=== PATIENT | female | born 1950 | race Two or more races ===

== ENCOUNTER 2017-12-09 07:47 | Day surgery (SDC) | payer MEDICARE, OTHER ==
[2017-12-09] VITALS (8 sets, daily range): BP systolic 93–124; BP diastolic 60–65
[~2017-12-09] VITALS: Ht 152.4 cm; Wt 52.6 kg
[~2017-12-09 07:47] MED LIST: LR 1000ml 1,000 ML IVLG SCH
--- NOTE | 2017-12-09 08:07 | Anethesia Preoperative Eval ---
Anesthesia Pre-op PMH/ROS General Date of Evaluation: Dec 09, 2017 Time of Evaluation: 08:55 Anesthesiologist: Jens ASA Score: ASA 1 Mallampati Score Class I : Soft palate, uvula, fauces, pillars visible Class II: Soft palate, uvula, fauces visible Class III: Soft palate, base of uvula visible Class IV: Only hard plate visible Mallampati Classification: Class I Surgeon: Wesley Diagnosis: GERD Surgical Procedure: EGD Anesthesia History: none Family History: no anesthesia problems Allergies: Coded Allergies: No Known Allergies (Unverified , 12/08/17) Medications: see eMAR Patient NPO?: Yes NPO Date: Dec 08, 2017 NPO Time: 21:00 Past Medical History Cardiovascular: Reports: other - hyperlipids Endocrine: Reports: hypothyroidism HEENT: Reports: glaucoma Musculoskeletal/Integumentary: Reports: OA - hands PSxH Narrative: bladder surgery Anesthesia Pre-op Phys. Exam Physician Exam Constitutional: NAD Neurologic: CN 2-12 intact Cardiovascular: RRR Respiratory: CTA Gastrointestinal: S/NT/ND Airway Exam Mallampati Score: Class I MO: full ROM: full Teeth: intact Dentures: no upper, no lower Anesthesia Pre-op A/P Labs chart reviewed Risk Assessment & Plan Assessment: A&Ox4 Plan: MAC Status Change Before Surgery: No Pre-Antibiotics Given Within 1 Hr of Incision: Hien Hamm CRNA Dec 09, 2017 08:07
--- NOTE | 2017-12-09 08:08 | Immediate Post-Op Evaluation ---
Immediate Post-Op Evalulation Immediate Post-Op Evalulation Procedure: EGD Date of Evaluation: Dec 09, 2017 Time of Evaluation: 09:30 IV Fluids: LR 300ml Blood Products: 0 Estimated Blood Loss: 0 Urinary Output: no remy Blood Pressure Systolic: 107 Blood Pressure Diastolic: 65 Pulse Rate: 74 Respiratory Rate: 20 O2 Sat by Pulse Oximetry: 99 Temperature (Fahrenheit): 97.3 Pain Score (1-10): 0 Nausea: No Vomiting: No Patient Status: awake, reacts, patent Hydration Status: adequate Given Within 1 Hr of Incision: No - none per surgeon Hien Colindres CRNA Dec 09, 2017 08:08
--- NOTE | 2017-12-09 08:52 | Short Stay Surgery H&P ---
History of Present Illness History of Present Illness Chief Complaint Abdominal pains/GERDs HPI Dianne Linda is a 67 year old female who was admitted on for GERD/abdominal pains Patient History Allergies: Coded Allergies: No Known Allergies (Unverified , 12/08/17) Review of Systems Cardiovascular: Reports: no symptoms Respiratory: Reports: no symptoms Skeletal: Reports: no symptoms Gastrointestinal: Reports: gastro esophageal reflux disease Genitourinary: Reports: no symptoms Neurologic: Reports: no symptoms Endocrine: Reports: other Hematologic: Reports: no symptoms Physical Exam Vital Signs Last Vital Signs Date Time Temp Pulse Resp B/P (MAP) Pulse Ox O2 Delivery O2 Flow Rate FiO2 12/09/17 08:39 Room Air 12/09/17 08:37 97.3 82 20 124/64 99 97.3 Skin: normal HENT: normal Heart: normal Lungs: normal Abdomen: normal Extremities: normal Genitourinary: normal Plan Plan of Care Upper GI endoscopy and biopsy Preop Interventions None. Summary of Findings See the reports Attestation Are the patient's medical conditions optimized for surgery? Attestation Response: yes Cheyenne Olson MD Dec 09, 2017 08:52
--- NOTE | 2017-12-09 08:53 | Pre-Procedure Note/Attestation ---
Pre-Procedure Note/Attestation Complete Prior to Procedure Planned Procedure: left Procedure Narrative: Endoscopic exam of the upper GItract and biopsy. Indications for Procedure Pre-Operative Diagnosis: R/O Gastritis/gastric ulcer./esophagitis Attestation I attest that I discussed the nature of the procedure; its benefits; risks and complications; and alternatives (and the risks and benefits of such alternatives ), prior to the procedure, with the patient (or the patient's legal sales representative cash registers). I attest that, if there was a reasonable possibility of needing a blood transfusion, the patient (or the patient's legal sales representative cash registers) was given the [facility] standardized written summary, pursuant to the [employer] [place] Blood Safety Act ([place] Health and Safety Code # 1645, as amended). I attest that I re-evaluated the patient just prior to the surgery and that there has been no change in the patient's H&P, except as documented below: Cheyenne Olson MD Dec 09, 2017 08:53
[2017-12-09] MEDS ORDERED: Midazolam 2mg/2ml Inj ONE (09:00)
[2017-12-09] MEDS ORDERED: Propofol 200mg/20ml IV ONE (09:00)
[2017-12-09] MEDS ORDERED: Lidocaine 1% MPF 10mg/ml 5ml ONE (09:00)
[2017-12-09] MEDS ORDERED: LR 1000ml ONE (09:00)
--- NOTE | 2017-12-09 09:15 | Endoscopy Procedure Note ---
Endoscopy Procedure Note General Indication for Procedure: Abdominal pains/GERDs Procedures Performed: EGD - Normal Upper GI. endoscopy, biopsy done per random from gastric body. Specimen: yes Pt Tolerated Procedure Well: Yes Estimated Blood Loss: none Anesthesia Anesthesiologist: Ms. Jens CRNA Anesthesia: moderate sedation Medications Medication Given: see anesthesia record Inserted Devices Implant(s) used?: No Quality Quality of Bowel Preparation: Excellent GI Core Measures 50 yrs or older w/o bx or poly: Not Applicable 10yrs. F/U not recommended: Not Applicable If not recommended, why?: Med reason:<3 yrs.: System Reason:<3 yrs.: Cheyenne Olson MD Dec 09, 2017 09:14
--- NOTE | 2017-12-09 09:15 | Discharge Instructions ---
Discharge Instructions Discharge Instructions Follow up with: Visit the doctor in office after 2 weeks. For Congestive Heart Failure Reminder Report to your physician any weight gain of 5 pounds or more in one week. Cheyenne Olson MD Dec 09, 2017 09:15
--- NOTE | 2017-12-09 10:44 | 48 Hour Post Anesthesia Eval ---
Post Anesthesia Evaluation Procedure: EGD Date of Evaluation: Dec 09, 2017 Time of Evaluation: 10:43 Blood Pressure Systolic: 93 0: 60 Pulse Rate: 79 Respiratory Rate: 16 Temperature (Fahrenheit): 97.5 O2 Sat by Pulse Oximetry: 96 Airway: patent Nausea: No Vomiting: No Pain Intensity: 0 Hydration Status: adequate Cardiopulmonary Status: WNL Mental Status/LOC: patient returned to baseline Follow-up care needed: patient intructions given Hien Colindres CRNA Dec 09, 2017 10:44
--- NOTE | 2017-12-09 12:30 | Operative Note - Dictated ---
DATE OF OPERATION: 12/09/2017 SURGEON: Cheyenne Olson M.D. PROCEDURE: Esophagogastroduodenoscopy with biopsy. PREOPERATIVE DIAGNOSES: Abdominal pain and gastroesophageal reflux. POSTOPERATIVE DIAGNOSIS: Completely normal upper GI endoscopy. Biopsy was taken per random from gastric body. MEDICATION USED: Per Ms. Hien Colindres CRNA. INSTRUMENT: GIF Olympus upper GI video endoscope. DESCRIPTION OF PROCEDURE: The patient after arriving endoscopy unit, was told about risks and benefits of the procedure, which she accepted and signed informed consent. She was then put in the left lateral decubitus position. After adequate IV sedation, the scope was gently passed through the cricopharyngeal area and was lodged into the upper esophagus and gradually advanced towards gastroesophageal junction. The entire length of the esophagus looked normal. There was no evidence of inflammatory process, ulceration, stricture, etc. GE junction also looked normal. At this time, the scope was advanced into the stomach, gastric cavity was distended with insufflation of air and the areas of the fundus and the body and the antrum were examined in an java software fashion, which revealed normal finding with normal mucosa. No evidence of ulcers, tumors, polyps, etc., was found. No gastritis. A retroflexion maneuver was also applied. The area of the gastroesophageal junction was examined, which also did not reveal any abnormality. At this point, one random biopsy from gastric body obtained and subsequently scope was passed through normal looking pylorus. First and second portion of duodenum were also found to be completely normal. Finally, the scope was pulled out and the procedure was terminated. The patient tolerated the procedure well and left the endoscopy room in a good condition. Cheyenne Olson M.D. DR: JOSEPHINE JOB#: [id number] CC:
== END 2017-12-09 10:30 | disposition home or self-care (01) ==
LOC: SUR 07:47
DX: K29.50 Unspecified chronic gastritis without bleeding (principal); B96.81 Helicobacter pylori [H. pylori] as the cause of diseases classified elsewhere; K21.9 Gastro-esophageal reflux disease without esophagitis; E78.5 Hyperlipidemia, unspecified; E03.9 Hypothyroidism, unspecified; H40.9 Unspecified glaucoma; M19.90 Unspecified osteoarthritis, unspecified site
CPT/HCPCS: 43239; J2250; J2704; 94003; 94150

== ENCOUNTER → 2020-04-22 | Day surgery (SDC) | payer MEDICARE, OTHER ==
[2020-04-22] VITALS (7 sets, daily range): BP systolic 104–125; BP diastolic 62–73
[~2020-04-22] VITALS: Ht 152.4 cm; Wt 53.1 kg
[~2020-04-22] MED LIST changes: +Atropine Sulfate 0.4mg/ml inj IVP PRN; +CRESTOR20 MG ORAL; +DiphenhydrAMINE 50mg/ml Inj IVP PRN; +HYDROcodone/Acetamin 5/325 tab ORAL PRN; +HYDROcodone/Acetamin 7.5/325 tab ORAL PRN; +Hydromorphone 0.5mg/0.5ml inj IVP PRN; +Ketorolac 30mg Inj IV PRN; +LEVOTHYROXINE100 MC1 PO; +LORazepam Inj 2mg/ml 1ml IV PRN; +LR 1000ml ONE; +Labetalol 5mg/ml 20ml vial IV PRN; +Meperidine 25mg/1ml Inj (FOR RIGORS ONLY) IV PRN; +Metoclopramide 10mg/2ml Inj IVP PRN; +Midazolam 2mg/2ml Inj IVP PRN; +fentaNYL 100 mcg/2 mL IV PRN; +oxyCODONE HCL/Acetaminophen 5/325mg ORAL PRN
--- NOTE | 2020-04-22 07:18 | Short Stay Surgery H&P ---
History of Present Illness History of Present Illness Chief Complaint Abdominal pains/GERDs HPI Dianne Linda is a 69 year old female who was admitted on for Ibs, Gerd Patient History Allergies: Coded Allergies: No Known Allergies (Unverified , 12/08/17) PAST MEDICAL HISTORY: (1) Hypertension (2) Hyperlipidemia Medication History Scheduled Levothyroxine Sodium* (Levothyroxine Sodium*), 50 MCG PO DAILY, (Reported) Rosuvastatin Calcium* (Crestor*), 20 MG ORAL DAILY, (Reported) Review of Systems Cardiovascular: Reports: no symptoms Respiratory: Reports: no symptoms Skeletal: Reports: no symptoms Gastrointestinal: Reports: gastro esophageal reflux disease Genitourinary: Reports: no symptoms Neurologic: Reports: no symptoms Endocrine: Reports: no symptoms Hematologic: Reports: no symptoms Physical Exam Skin: normal HENT: normal Lungs: normal Abdomen: normal Extremities: normal Genitourinary: normal Plan Plan of Care Upper and lower GI. endoscopies with biopsy Preop Interventions None. Summary of Findings See the reports. Attestation Are the patient's medical conditions optimized for surgery? Attestation Response: yes Cheyenne Olson MD Apr 22, 2020 07:18
--- NOTE | 2020-04-22 07:19 | Pre-Procedure Note/Attestation ---
Pre-Procedure Note/Attestation Complete Prior to Procedure Planned Procedure: left Procedure Narrative: Examination of thye upper and the lower GI tract via endoscopy Indications for Procedure Pre-Operative Diagnosis: R/O Peptic ulcer, gastritis, colon polyps. Attestation I attest that I discussed the nature of the procedure; its benefits; risks and complications; and alternatives (and the risks and benefits of such alternatives), prior to the procedure, with the patient (or the patient's legal airline security representative). I attest that, if there was a reasonable possibility of needing a blood transfusion, the patient (or the patient's legal airline security representative) was given the [facility] standardized written summary, pursuant to the [employer] [place] Blood Safety Act ([place] Health and Safety Code # 1645, as amended). I attest that I re-evaluated the patient just prior to the surgery and that there has been no change in the patient's H&P, except as documented below: Cheyenne Olson MD Apr 22, 2020 07:19
--- NOTE | 2020-04-22 07:20 | Discharge Instructions ---
Discharge Instructions Discharge Instructions Follow up with: See the doctor after two weeks in the office For Congestive Heart Failure Reminder Report to your physician any weight gain of 5 pounds or more in one week. Cheyenne Olson MD Apr 22, 2020 07:20
--- NOTE | 2020-04-22 08:34 | Anethesia Preoperative Eval ---
Anesthesia Pre-op PMH/ROS General Date of Evaluation: Apr 22, 2020 Time of Evaluation: 07:56 Anesthesiologist: Ayaka ASA Score: ASA 3 Mallampati Score Class I : Soft palate, uvula, fauces, pillars visible Class II: Soft palate, uvula, fauces visible Class III: Soft palate, base of uvula visible Class IV: Only hard plate visible Mallampati Classification: Class I Surgeon: Wesley Diagnosis: Abd Pain Surgical Procedure: EGD/Colonoscopy Anesthesia History: none Family History: no anesthesia problems Allergies: Coded Allergies: No Known Allergies (Unverified , 12/08/17) Medications: see eMAR Patient NPO?: Yes Past Medical History Cardiovascular: Reports: HTN Gastrointestinal/Genitourinary: Reports: GERD Endocrine: Reports: hypothyroidism PSxH Narrative: Multip Proced Anesthesia Pre-op Phys. Exam Physician Exam Last Vital Signs Date Time Temp Pulse Resp B/P (MAP) Pulse Ox O2 Delivery O2 Flow Rate FiO2 04/22/20 07:30 Room Air 04/22/20 07:29 97.9 90 18 123/70 100 Constitutional: NAD Neurologic: CN 2-12 intact Cardiovascular: RRR Respiratory: CTA Gastrointestinal: S/NT/ND Airway Exam Mallampati Score: Class II MO: full ROM: limited Teeth: missing, intact Anesthesia Pre-op A/P Risk Assessment & Plan Assessment: ASA 3 Plan: TIVA Status Change Before Surgery: Leroy Jim MD Apr 22, 2020 08:34
--- NOTE | 2020-04-22 08:35 | Immediate Post-Op Evaluation ---
Immediate Post-Op Evalulation Immediate Post-Op Evalulation Procedure: EGD/ Colonoscopy Date of Evaluation: Apr 22, 2020 Time of Evaluation: 09:02 IV Fluids: 300 LR Blood Products: 0 Estimated Blood Loss: 1 Urinary Output: 0 Blood Pressure Systolic: 109 Blood Pressure Diastolic: 70 Pulse Rate: 89 Respiratory Rate: 16 O2 Sat by Pulse Oximetry: 97 Temperature (Fahrenheit): 98.1 Pain Score (1-10): 1 Nausea: No Vomiting: No Complications 0 Patient Status: awake, patent, none Hydration Status: adequate Leroy Marley MD Apr 22, 2020 08:35
--- NOTE | 2020-04-22 08:36 | 48 Hour Post Anesthesia Eval ---
Post Anesthesia Evaluation Procedure: EGD/ Colonoscopy Date of Evaluation: Apr 22, 2020 Time of Evaluation: 11:03 Blood Pressure Systolic: 128 0: 78 Pulse Rate: 92 Respiratory Rate: 18 Temperature (Fahrenheit): 98.2 O2 Sat by Pulse Oximetry: 98 Airway: patent Nausea: No Vomiting: No Pain Intensity: 1 Hydration Status: adequate Cardiopulmonary Status: Stable Mental Status/LOC: patient returned to baseline Follow-up Care/Observations: 0 Post-Anesthesia Complications: 0 Leroy Marley MD Apr 22, 2020 08:36
--- NOTE | 2020-04-22 08:37 | Endoscopy Procedure Note ---
Endoscopy Procedure Note General Indication for Procedure: abdominal pains/GERds/anal pain and history of hemorrhoids and anal fissure Procedures Performed: EGD - Mild gastritis, random biopsy taken from gastric body., colonoscopy - Very minimal internal hemorrhoid; otherwise completely normal total colonoscopy. Specimen: yes Pt Tolerated Procedure Well: Yes Estimated Blood Loss: none Anesthesia Anesthesiologist: Dr. Marley Anesthesia: moderate sedation Inserted Devices Implant(s) used?: No Quality Quality of Bowel Preparation: Excellent Did scope reach the cecum?: Yes Was there any complications?: No GI Core Measures 50 yrs or older w/o bx or poly: Yes 10yrs. F/U recommended: Yes Med reason:<3 yrs.: System Reason:<3 yrs.: Last colonoscopy >= to 3yrs: No Cheyenne Olson MD Apr 22, 2020 08:37
--- NOTE | 2020-04-22 09:44 | Procedure Note ---
DATE OF PROCEDURE: 04/22/2020 SURGEON: Cheyenne Olson MD. PROCEDURE: Total colonoscopy. PREOPERATIVE DIAGNOSES: History of hemorrhoids, anal fissure, abdominal pain. POSTOPERATIVE DIAGNOSES: Evidence of very minimal internal hemorrhoids, otherwise completely normal total colonoscopy. No evidence of fissures, polyps, or tumors found. MEDICATION USED: Per Dr. Marley, anesthesiologist. INSTRUMENT: GIF Olympus video colonoscope. DESCRIPTION OF PROCEDURE: The patient after arriving endoscopy unit, was told about risks and benefits of the procedure, which she accepted and signed informed consent. The patient has had history of anal fissures, pain and irritation, in the past hemorrhoids, and at this time she was being re-examined due to continuous complaint of anal pain, irritation, and abdominal discomfort. At this time, she was put in the left lateral decubitus position. After adequate IV sedation, the scope was gently passed through the anal area and careful examination of this section revealed no evidence of any fissures. There was however very minimal internal hemorrhoids and some prolapse of the skin tags, which were not important. The rest of the anal area was completely normal and also retroflexion maneuver was applied here as well. Finally, the scope was passed through this normal area and introduced into the rectosigmoid and from there into the descending colon and gradually advanced towards the splenic flexure. All these areas also remained to be completely normal without any evidence of pathology. Finally scope was guided into the transverse colon, hepatic flexure, and arrived into the ascending colon all the way to the base of the cecum. All these areas again also were within normal limits and there was no any abnormality such as tumors, polyps, stricture, bleeding site, hemangiomas, etc. found. After visualizing the appendiceal opening, the scope was gradually pulled out and again no other abnormalities was found during the process of withdrawing the scope. The colon cleanup was excellent and approximately about 6 to 7 minutes to withdraw the scope. The patient tolerated the procedure well and left the endoscopy room in a good condition. Cheyenne Olson M.D. DR: Yajaira JOB#: [id number] CC:
--- NOTE | 2020-04-22 10:29 | Operative Note - Dictated ---
DATE OF OPERATION: 04/22/2020 PROCEDURE: Esophagogastroduodenoscopy with biopsy. PREOPERATIVE DIAGNOSIS: Abdominal pain, history of chronic gastroesophageal acid reflux and positive Helicobacter infection in the past, rule out recurrence. POSTOPERATIVE DIAGNOSIS: Evidence of very minimal gastritis, otherwise completely normal upper GI endoscopy. Biopsy was taken per random from gastric body. MEDICATION USED: Per Dr. Marley, anesthesiologist. INSTRUMENT: GIF Olympus upper GI video endoscope. DESCRIPTION OF PROCEDURE: The patient after arriving an endoscopy unit, was told about risks and benefits of the procedure that she accepted and signed informed consent. She was then put on the left lateral decubitus position. After adequate IV sedation, the scope was gently passed through the cricopharyngeal area and was lodged into the upper esophagus and gradually was advanced towards gastroesophageal junction. The entire length of the esophagus looked normal. There was no any evidence of inflammatory process, ulceration, stricture, exudate, etc. There was no hiatal hernia and no Holley's. At this time, the scope was advanced into the stomach and gastric cavity was distended with insufflation of air and gradually the areas of the fundus and the body and the antrum were examined. There was mostly very minimal inflammatory process with congestion of gastric mucosa very minimally over the body and the antral area, but there was no ulcers, tumors, polyps, etc. At this time, couple of random biopsy from gastric body was obtained and subsequently, the scope was passed through the pylorus. First and second portion of duodenum were also found to be completely normal. At this time, the scope was pulled back into the stomach. A retroflexion maneuver was applied and the area of the gastroesophageal junction was examined in a retrograde fashion, which revealed normal findings. Finally, the scope was pulled out and the procedure was terminated. The patient tolerated the procedure well. Said Janel Olson DR: JOSEPHINE JOB#: [id number] CC:
== END | disposition home or self-care (01) ==
LOC: GAS 07:03
DX: K29.70 Gastritis, unspecified, without bleeding (principal); K21.9 Gastro-esophageal reflux disease without esophagitis; I10 Essential (primary) hypertension; E78.5 Hyperlipidemia, unspecified; K64.8 Other hemorrhoids; K64.4 Residual hemorrhoidal skin tags
CPT/HCPCS: 43239; 45378; 94003; J2250; J2704; J7120; U0004; 94150